=== PATIENT | male | born 1935 | race Caucasian/White ===

== ENCOUNTER → 2018-11-19 | Outpatient (CLI) | payer MEDICARE ==
[~2018-11-19] MED LIST: AGGRENOX; AGGRENOX 25 MG-1 CAP PO; ALLOPURINOL; ALLOPURINOL300 MG PO; AMLODIPINE; ASPIRIN CHEW81 MG PO; AVODART; BENICAR HCT 401 EAC1 PO; CRESTOR; DIOVAN160 MG PO; FINASTERIDE5 MG PO; FUROSEMIDE40 MG PO; GEMFIBROZIL; GEMFIBROZIL600 MG PO; GLIMEPIRIDE; GLIMEPIRIDE2 MG PO; LEVAQUIN250 MG PO; LOSARTAN POTASSIUM; METFORMIN; METFORMIN HCL500 MG PO; MIRALAX17 GM PO; NIFEDICAL; NIFEDICAL XL60 MG PO; PROCARDIA XL30 MG PO; TAMSULOSIN; TAMSULOSIN HCL0.4 MG PO; benicar; carvedilol
--- NOTE | 2018-11-19 11:37 | Diagnostic Imaging Report ---
EXAM: Renal Ultrasound INDICATION: ^[id number] ^CHRONIC KIDNEY DZ COMPARISON: None TECHNIQUE: Transverse and longitudinal images of the kidneys and bladder were obtained. FINDINGS: Right Kidney: Length: 13.0 cm Appearance: Normal echogenicity. Collecting system: No hydronephrosis Stones: None Cyst/Mass: Multiple anechoic simple cysts, the largest of which measures 1.6 x 1.6 x 1.5 cm at the mid pole. Left Kidney: Length: 12.4 cm Appearance: Normal echogenicity. Collecting system: No hydronephrosis Stones: None Cyst/Mass: Multiple anechoic simple cysts, the largest of which measures 5.0 x 4.5 x 5.8 cm at the mid pole. Bladder: No mass or calculi. Bilateral ureteral jets visualized. Prevoid volume estimate of 214cc. IMPRESSION: Bilateral simple cysts as above. No hydronephrosis or renal calculi. Signed by: Roberta Cazares MD on 11/19/2018 11:34 AM
== END ==
LOC: US 09:13
PROVIDERS: ATTEND Urology
DX: N18.9 Chronic kidney disease, unspecified (principal)
CPT/HCPCS: 76770

== ENCOUNTER → 2021-12-16 | Day surgery (SDC) | payer MEDICARE ==
[2021-12-14 10:21] LABS: BASOPHILS # (AUTO) 0.1 (0.0-0.1); BASOPHILS % 1.1 % (0.0-1.0); EOSINOPHILS # (AUTO) 0.3 (0.0-0.4); EOSINOPHILS % 3.2 % (0.0-6.0); HEMATOCRIT 50.6 % (38.2-49.6); HEMOGLOBIN 16.8 g/dL (14.0-18.0); LYMPHOCYTES # (AUTO) 2.2 (1.0-3.2); LYMPHOCYTES % 26.2 % (18.0-39.1); MEAN CORPUSCULAR HEMOGLOBIN 31.1 pg (28-32); MEAN CORPUSCULAR HGB CONC 33.2 g/dL (31-35); MEAN CORPUSCULAR VOLUME 93.7 fL (81-99); MONOCYTES # (AUTO) 0.8 (0.2-0.8); MONOCYTES % 9.8 % (4.4-11.3); NEUTROPHILS # (AUTO) 5.1 (2.1-6.9); NEUTROPHILS % 59.1 % (38.7-80.0); PLATELET COUNT 239 x10e3/uL (140-360); RED CELL DISTRIBUTION WIDTH 13.7 % (11.7-14.4)
[~2021-12-16] MED LIST changes: +ATORVASTATIN CA20 MG PO; +BALANCED SALT SOLN (OPTH) 15 ML BTL IO ONE; +BUPIVACAINE HC 0.75% PF 10ML VIAL INJ ONE; +CYCLOPENTOLATE HCL 2% OPTH SOLN 2 ML BTL OP ONE; +ELIQUIS2.5 MG PO; +EPINEPHRINE HCL 1:1000 1ML 1 MG/ML AMP ONE; +FENTANYL CITRATE/PF 100MCG/2 ML INJ ONE; +GATIFLOXACIN(OPTH) 5 ML LIQD ONE; +LIDOCAINE 2% /EPINEPHRINE 20 ML SDV INJ ONE; +LIDOCAINE HCL-PF 4% 40 MG/1 ML 5ML AMP ONE; +MIDAZOLAM HCL 2 MG/2 ML VIAL ONE; +OLMESARTAN-HCT1 EAC1; +PHENYLEPHRINE HCL 2 ML DROPS ONE; +PILOCARPINE HCL(OPTH) 15 ML LIQD ONE; +POVIDONE IODINE 0.05% 0.05 % ML PO ONE; +POVIDONE IODINE 5% (OPTH) 30 ML BTL ONE; +PRESERVISION T1 EACH; +PROPOFOL IV EMULSION 10 MG/ML 20 ML VIAL ONE; +TOBRAMYCIN/DEXAMETHASONE(OPTH) 3.5 GM TUBE ONE
[2021-12-16 09:20] VITALS: BP 136/74
== END | disposition home or self-care (01) ==
LOC: OR 08:05
PROVIDERS: ATTEND Ophthalmology
DX: H25.12 Age-related nuclear cataract, left eye (principal); G47.33 Obstructive sleep apnea (adult) (pediatric); I25.10 Atherosclerotic heart disease of native coronary artery without angina pectoris; I48.91 Unspecified atrial fibrillation; I10 Essential (primary) hypertension; E78.5 Hyperlipidemia, unspecified; N40.0 Benign prostatic hyperplasia without lower urinary tract symptoms; M06.9 Rheumatoid arthritis, unspecified; M19.90 Unspecified osteoarthritis, unspecified site; E66.9 Obesity, unspecified; Z01.810 Encounter for preprocedural cardiovascular examination; Z01.812 Encounter for preprocedural laboratory examination; Z20.822 Contact with and (suspected) exposure to COVID-19; Z79.02 Long term (current) use of antithrombotics/antiplatelets; Z79.82 Long term (current) use of aspirin; Z79.899 Other long term (current) drug therapy
CPT/HCPCS: 0223U; 36415 ×2; 66984; 82948; 85025; 93005; J0171; J2001; J2250; J2704; J3010; V2632